=== PATIENT | female | born 1965 | race Caucasian/White ===

== ENCOUNTER 2023-03-25 22:33 | Emergency (ER) | payer MEDICAID, SELFPAY ==
[2023-03-25 22:35] VITALS: BP 120/74; PULSE 71; RESP 14; TEMP 36.4; O2SAT 97; BMI 21.2
--- NOTE | 2023-03-25 22:48 | PC.NURSE ---
spoke with Radha oropezaretail warehouse supervisor @ [facility] to get report of recent er visit
--- NOTE | 2023-03-25 22:51 | XR_ITS ---
PROCEDURE INFORMATION: Exam: XR Left Tibia and Fibula Exam date and time: 03/25/2023 10:57 PM Age: 57 years old Clinical indication: Pain; Knee; Prior surgery; Surgery date: 6+ months; Surgery type: Left tib/fib; Additional info: Concern for hardware loosening; Pain TECHNIQUE: Imaging protocol: Radiologic exam of the left tibia and fibula. Views: 2 views. COMPARISON: CR XR KNEE LT 3V 03/25/2023 10:57 PM FINDINGS: Bones/joints: No acute fracture. Plate and screw fixation of tibia. No definite hardware loosening. Few small faint rounded lucencies within tibial diaphysis. No dislocation. No definite cortical destruction. Soft tissues: Unremarkable. IMPRESSION: Faint lucencies within tibial diaphysis, indeterminate significance. Infection not excluded. Suggest MRI.
--- NOTE | 2023-03-25 22:51 | XR_ITS ---
PROCEDURE INFORMATION: Exam: XR Left Knee Exam date and time: 03/25/2023 10:57 PM Age: 57 years old Clinical indication: Pain; Knee; Prior surgery; Surgery date: 6+ months; Surgery type: Left tib/fib; Additional info: Concern for hardware loosening; Pain TECHNIQUE: Imaging protocol: Radiologic exam of the left knee. Views: 3 views. COMPARISON: No relevant prior studies available. FINDINGS: Bones/joints: No acute fracture. Postsurgical changes of tibia. No dislocation. No significant joint effusion. Soft tissues: Unremarkable. IMPRESSION: No fracture. If pain persists, suggest MRI to evaluate for occult fracture/internal derangement.
--- NOTE | 2023-03-25 23:05 | HMH.EDGENADL ---
Discharge Plan Disposition Patient Disposition: Home, Self-Care Condition: Good Referrals Follow up/Referrals: Provider,Dejuan, [Primary Care Provider] - See instructions Clinical Impressions Clinical Impression: Left leg pain Discharge ED Provider: Aamir Angel General Adult HPI <Herb Bernal MD - Last Filed: 03/25/23 23:08> General Chief complaint: PAIN Stated complaint: LT LEG THROBBING Time Seen by Provider: 03/25/23 23:05 Mode of Arrival: Ambulatory Limitations: No Limitations Description of Symptoms (Recalled from ER Triage Doc. by RN): Pt states she had surgery 3 years ago on left leg following an injury. Pt has now had left leg pain for a couple weeks, and pt states it has worsened in the past week. Pt states nothing make pain better or worse. Pt has not taken any medications, or done anything at home to help with pain. Pt states pain shoots down leg. and has tingling in leg and foot. History of Present Illness HPI narrative: Patient is a 57-year-old female who has a history of ORIF of the left lower extremity treated by Dr. Yola young in 2018 at [facility] after she fell off of a porch and had a lower leg injury. She states she has been doing well up until few days ago when she had significant pain in left lower extremity and specifically felt as though there is some abnormality of the contour of the proximal tibia area in the lateral aspect of her leg. She was [place] emergency department earlier tonight where they touch her leg for a few moments did not do any x-ray imaging and discharged her and told everything was fine. She denies any swelling any redness any fever. Related Data Allergies Allergy/AdvReac Type Severity Reaction Status Date / Time No Known Allergies Allergy Verified 03/25/23 22:55 PFSH <Herb Bernal MD - Last Filed: 03/25/23 23:08> PFSH Disclaimer: The information contained in this section may have been updated after the patient was seen, as this information can be updated by other users. Social History (Updated 03/25/23 @ 23:08 by Herb Bernal MD) Smoking Status: Current every day smoker alcohol intake: never current occupational status: other Travel in the last 8 weeks: None <Herb Bernal MD - Last Filed: 03/25/23 23:08> ROS Obtained: Yes All systems reviewed & no additional complaints except as documented Physical Exam <Herb Bernal MD - Last Filed: 03/25/23 23:08> General General appearance: alert Respiratory Respiratory exam: Present normal lung sounds bilaterally Cardiovascular Cardiovascular exam: Present regular rate; Absent tachycardia Extremities Exam Extremities exam: Present other (Left lower extremity tenderness over the proximal lateral aspect of the tibia there is a protuberance of the skin which the patient states is new no evidence of any erythema swelling etc. neurovascular normal) Neurological Exam Neurological exam: Present alert and oriented X3 Medical Decision Making <Herb Bernal MD - Last Filed: 03/25/23 23:08> Fabiano Inquiry Pt receiving controlled substance: No Vital Signs: 03/25/23 22:35 03/25/23 23:35 03/25/23 23:40 Temperature 97.6 F Temperature Source Oral Pulse Rate 73 73 Pulse Rate [Left Radial] 71 Respiratory Rate 14 Blood Pressure 118/87 112/68 Blood Pressure [Right Arm] 120/74 Blood Pressure Mean [Right Arm] 89 02 Sat by Pulse Oximetry 97 98 97 Oxygen Delivery Method Room Air 03/25/23 23:50 03/26/23 00:00 03/26/23 00:10 Temperature Temperature Source Pulse Rate 63 60 64 Pulse Rate [Left Radial] Respiratory Rate Blood Pressure 118/71 112/75 110/70 Blood Pressure [Right Arm] Blood Pressure Mean [Right Arm] 02 Sat by Pulse Oximetry 99 99 98 Oxygen Delivery Method Orders (Tests/Meds): ED MEDICATIONS Discontinued Medications Generic Name Dose Route Start Last Admin Trade Name Freq PRN Reason Stop Dose Admin Acetaminoph
[2023-03-25 23:35] VITALS: BP 118/87; PULSE 73; O2SAT 98
[2023-03-25 23:40] VITALS: BP 112/68; PULSE 73; O2SAT 97
[2023-03-25 23:50] VITALS: BP 118/71; PULSE 63; O2SAT 99
[2023-03-26] VITALS: BP 112/75; PULSE 60; O2SAT 99
[2023-03-26 00:10] VITALS: BP 110/70; PULSE 64; O2SAT 98
[2023-03-26 00:20] VITALS: BP 103/71; PULSE 63; O2SAT 99
[2023-03-26 00:47] VITALS: BP 124/79; PULSE 66; RESP 18; TEMP 36.6; O2SAT 99
== END 2023-03-26 00:48 | disposition home or self-care (01) ==
PROVIDERS: Emergency Provider Emergency Medicine
DX: M79.605 Pain in left leg (principal); F17.210 Nicotine dependence, cigarettes, uncomplicated
CPT/HCPCS: 73562; 73590; 99284